=== PATIENT | female | born 1965 | race Caucasian/White ===

== ENCOUNTER 2018-09-08 07:28 | Day surgery (SDC) | payer BC ==
[~2018-09-08] VITALS: Ht 170.2 cm; Wt 76.7 kg
[2018-09-08] MEDS ORDERED: MIDAZOLAM HCL 5 MG/5 ML VIAL IVP ONE (10:15)
[2018-09-08] MEDS ORDERED: LIDOCAINE/EPI MPF 1%1:200000 30 ML VIAL INJ ONE (10:15)
[2018-09-08] MEDS ORDERED: KETOROLAC TROMETHAMINE 30 MG VIAL IVP ONE (10:15)
[2018-09-08] MEDS ORDERED: fentaNYL CITRATE 250 MCG/5 ML AMP IV ONE (10:15)
[2018-09-08] MEDS ORDERED: SEVOFLURANE 15 MIN GAS INH ONE (10:15)
[2018-09-08] MEDS ORDERED: LR 1,000 ML IV.SOLN IV ONE (10:15)
[2018-09-08] MEDS ORDERED: ONDANSETRON HCL 4 MG/2 ML VIAL IVP ONE (10:15)
[2018-09-08] MEDS ORDERED: ROCURONIUM BROMIDE 10 MG/ML (ZEMURON) IV ONE (10:15)
[2018-09-08] MEDS ORDERED: DEXAMETHASONE SOD PHOSPHATE 4 MG/ML VIAL IVP ONE (10:15)
[2018-09-08] MEDS ORDERED: PROPOFOL 200MG/ 20ML VIAL (DIPRIVAN) IV ONE (10:15)
[2018-09-08] MEDS ORDERED: LIDOCAINE/EPI 1% 1:100000 20 ML VIAL INJ ONE (11:25)
[2018-09-08] MEDS ORDERED: MUPIROCIN 2% TOPICAL OINTMENT 22 GM TP ONE (11:27)
[2018-09-08] MEDS ORDERED: LR 1,000 ML IV SCH (11:38)
[2018-09-08] MEDS ORDERED: HYDROmorphone 2 MG/ML VIAL IVP PRN ×2 (11:45)
[2018-09-08] MEDS ORDERED: MEPERIDINE HCL/PF 25 MG/ML DISP.SYRIN IVP PRN (11:45)
[2018-09-08] MEDS ORDERED: HYDROmorphone 1 MG INJ. 1 MG/ML AMPUL IVP PRN (11:45)
[2018-09-08 12:57] VITALS: BP_SYST 116
== END 2018-09-08 13:43 | disposition home or self-care (01) ==
LOC: SMU 07:28 → SDS 07:28
PROVIDERS: ATTEND Otolaryngology
DX: L72.0 Epidermal cyst (principal); M54.12 Radiculopathy, cervical region; K21.9 Gastro-esophageal reflux disease without esophagitis; N95.1 Menopausal and female climacteric states; R35.1 Nocturia; I10 Essential (primary) hypertension; Z98.890 Other specified postprocedural states
CPT/HCPCS: 11422; 88304; J1100; J1885; J2250; J2405; J2704; J3010; J7120; 88305